=== PATIENT | male | born 1975 | race Caucasian/White ===

== ENCOUNTER 2023-09-03 07:15 | Inpatient (IN) | payer OTHER, SELFPAY ==
[2023-09-03] VITALS (93 sets, daily range): BP systolic 94–194; BP diastolic 56–146; PULSE 46–100; RESP 10–20; TEMP 36.6–37; O2SAT 96–100; BMI 26.6
--- NOTE | ~2023-09-03 | XR_ITS ---
XR chest 1V portable DATE: 09/03/2023 07:47 INDICATION: Chest pain TECHNIQUE: Portable upright AP chest on 09/03/2023 at 0743 hours COMPARISON: 04/21/2016 2 view chest FINDINGS: Normal heart size. Mild aortic tortuosity. No hilar or mediastinal enlargement. No pulmonary infiltrate or consolidation, pleural effusion or pulmonary vascular congestion or pneumo thorax is detected. IMPRESSION: No active cardiopulmonary disease Reviewed, dictated and finalized at location A. [facility]
--- NOTE | 2023-09-03 07:18 | ECG_ITS ---
Measurements Intervals [place] Rate: 81 P: -5 [place]: 151 QRS: 14 QRSD: 98 T: 83 QT: 380 QTc: 443 Interpretive Statements SINUS RHYTHM NONSPECIFIC ST & T-WAVE ABNORMALITY- ANTEROLAT/HIGH LAT LEADS BORDERLINE ECG NO PREVIOUS ECG AVAILABLE FOR COMPARISON Electronically Signed On 09-03-2023 8:48:56 DOUBLE END TRIMMER by Abdoulaye Gutiérrez D.O.
[2023-09-03] MEDS: ASPIRIN 81 MG CHEWABLE TABLET 324 MG PO (07:22)
[2023-09-03 07:33] LABS: Basophils Absolute Auto 0.1 K/mm3 (0.0-0.1); Basophils Percent Auto 0.9 % (0.2-1.2); Eosinophils Absolute Auto 0.2 K/mm3 (0-0.3); Eosinophils Percent Auto 2.7 % (0-4.4); Hematocrit 49.4 % (42.0-52.0); Hemoglobin 17.3 g/dL (14.0-18.0); Immature Granulocyte Absolute 0.03 K/mm3 (0.00-0.031); Immature Granulocyte Percent A 0.4 % (0-0.5); Lymphocytes Absolute Auto 2.22 K/mm3 (0.9-3.2); Mean Corpuscular Hemoglobin 32.2 pg (26-34); Mean Platelet Volume 9.9 fl (7.4-10.4); Monocytes Absolute Auto 0.6 K/mm3 (0.1-0.6); Monocytes Percent Auto 7.4 % (2.6-8.5); Neutrophils Absolute Auto 5.1 K/mm3 (1.3-6.7); Neutrophils Percent Auto 61.6 % (45.5-73.1); Platelet Count Result 239 k/mm3 (150-375); Red Blood Count 5.37 M/mm3 (4.6-6.20); Red Cell Distribution Width 12.7 % (11.5-14.5); White Blood Count 8.2 K/mm3 (4.5-10.0)
[2023-09-03 07:43] LABS: Alanine Aminotransferase 45 U/L (6-50); Albumin Level 4.6 g/dL (3.5-5.1); Alkaline Phosphatase 69 U/L (38-126); Anion Gap 9 mmol/L (8-16); Aspartate Amino Transferase 36 U/L (17-59); Bilirubin,Total 0.6 mg/dL (0.2-1.3); Blood Urea Nitrogen 8 mg/dL (9-20); Calcium 8.9 mg/dL (8.4-10.2); Carbon Dioxide 27 mmol/L (22-30); Chloride 101 mmol/L (98-107); Estimated Glomerular Filt Rate > 60; Glucose 99 mg/dL (65-110); Lipase 161 U/L (23-300); Potassium 3.9 mmol/L (3.4-5.0); Sodium 137 mmol/L (137-145)
[2023-09-03 07:44] LABS: INR 0.9; Prothrombin Time 12.8 Seconds (11.1-14.7)
[2023-09-03 07:45] LABS: Partial Thromboplastin Time 28.9 SECONDS (22.3-36.8)
--- NOTE | 2023-09-03 07:53 | ED.CHESTPAIN ---
HPI - Chest Pain General Chief Complaint: Chest Pain Stated Complaint: chest pain Time Seen by Provider: 09/03/23 07:52 Source: patient and family Mode of arrival: ambulatory Limitations: no limitations History of Present Illness HPI narrative: 48 years old white male came to the emergency room from home with intermittent pain at the left chest, left upper extremity for 1 week, got worse over the last 2 days, has been almost steady since 4:00 a.m... PATIENT IS TELLING ME THAT HE HAD HISTORY OF CORONARY STENT 2015, USED TO BE ON MEDICATION WHICH HE DID NOT LIKE. HE HAS NOT BEEN TAKING MEDICATION FOR THE LAST 6 YEARS. Related Data Home Medications Medication Instructions Recorded Confirmed No Home Medications 09/03/23 09/03/23 Allergies Allergy/AdvReac Type Severity Reaction Status Date / Time No Known Allergies Allergy Verified 09/03/23 07:29 Review of Systems Review of Systems: All systems reviewed & are unremarkable except as noted in HPI and below PMFSH Past Medical History Medical History (Updated 09/04/23 @ 16:54 by Catia Recinos MD) Coronary artery disease Status post stenting in 2015, again in 08/2023 Family History Family History Unknown Family history unknown Social History Social History (Updated 09/03/23 @ 15:49 by Erum Solano APRN) Smoking packs per day: 1 Smoking cigarettes per day: 20.0 Years smoked: 22 Smoking pack-years: 22.00 Smoking status: Former smoker Tobacco type: cigarettes Smoking end date: 08/29/09 Alcohol intake: never Drinks per week: 15 Alcohol use details: 4-5 vodka drinks x3-4 times per week Substance use: never Substance use type: does not use Do You Feel Safe in your Home?: Yes Lack of Transportation: No Lack of Food: Never True Current Housing: I Have Housing Concerned About Future Housing: No Difficulty Paying Gas/Electric Bills: No Difficulty Paying for Meds: No Currently Unemployed: No Education: High School Diploma/GED Difficulty w/ Childcare or Family Care: No Spiritual care concerns: No Exam Narrative: GENERAL APPEARANCE: WELL-DEVELOPED, WELL-NOURISHED, LOOKS UNCOMFORTABLE SKIN: NORMAL COLOR HEAD: NORMOCEPHALIC, NONTRAUMATIC EYES: CLEAR CONJUNCTIVA ENT: OROPHARYNX NORMAL, EARS NORMAL, NOSE NORMAL NECK: SUPPLE, NONTENDER CHEST AND RESPIRATORY: AIRWAY PATENT, NO RESPIRATORY DISTRESS, NO ACCESSORY MUSCLE USE HEART: REGULAR RATE/RHYTHM ABDOMEN: SOFT, NONTENDER, NO ORGANOMEGALY, QUIET BOWEL SOUNDS VASCULAR: NORMAL PERIPHERAL PULSES, NORMAL CAPILLARY REFILL. MUSCULOSKELETAL: NORMAL RANGE OF MOTION, NONTENDER BACK NEUROLOGIC: ALERT AND ORIENTED ?3, AIR CONTROL/ANTI AIR WARFARE OFFICER IS NORMAL TESTED, NO GROSS MOTOR DEFICIT Course Consultations Consultation #1: DR SWANSON Date: 09/03/23 Time: 10:56 Consultation #2: DR STYLES Date: 09/03/23 Time: 12:49 Vital Signs Vital signs: Vital Signs Temperature 36.7 C 09/03/23 07:20 Pulse Rate 86 09/03/23 07:20 Respiratory Rate 20 09/03/23 07:20 Blood Pressure 174/106 H 09/03/23 07:20 Pulse Oximetry 98 09/03/23 07:20 Oxygen Delivery Room Air 09/03/23 07:20 Temperature 36.6 C 09/04/23 16:00 Pulse Rate 86 09/04/23 18:00 Respiratory Rate 14 09/04/23 16:00 Blood Pressure 117/78 09/04/23 16:00 Pulse Oximetry 98 09/04/23 16:00 Oxygen Delivery Room Air 09/04/23 16:00 MDM - Chest Pain MDM Narrative Medical decision making narrative: 48 YEARS OLD WHITE MALE CAME TO THE ED WITH INTERMITTENT LEFT CHEST PAIN RADIATING TO LEFT UPPER EXTREMITY. GOT WORSE OVER THE LAST FEW HOURS. PATIENT IS ADOPTED, DO
[2023-09-03 07:57] LABS: Troponin I 0.284 ng/mL (0.000-0.034)
[2023-09-03 08:16] LABS: NT Pro B Type Natriuretic Pept 544 pg/mL (19.9-100)
[2023-09-03 10:46] LABS: D Dimer < 0.22 ug/mL (<0.48)
--- NOTE | 2023-09-03 10:50 | PC.NURSE ---
pt continues to c/o left sided chest pain with radiation into his left shoulder and elbow. rates 5/10. states pain woke russell from sleep and has been constant today. states has been having this same pain intermittent over the last few days but states it has been relieved with aleve. states pain is similiar to past episode when he had to have a cardiac stent placed.
[2023-09-03] MEDS: ONDANSETRON INJ 4 MG/2 ML VIAL IV PUSH (10:51)
[2023-09-03] MEDS: MORPHINE SULFATE (*CRX) 4 MG/ML INJ IV PUSH ×2 (10:52→11:50)
[2023-09-03 10:54] LABS: Troponin I 0.332 ng/mL (0.000-0.034)
[2023-09-03] MEDS: HEPARIN SODIUM 5,000 UNITS/ML VIAL 4000 UNITS IV PUSH (11:07)
[2023-09-03] MEDS: HEPARIN SOD/D5W 100 UNITS/ML 25,000 UNITS/250 ML BAG 9 UNITS IV CONT (11:08)
[2023-09-03] MEDS: METOPROLOL TARTRATE 50 MG TAB 25 MG PO (11:09)
[2023-09-03] MEDS: NITROGLYCERIN OINTMENT 1 INCH DOSE TRANSDERM (11:10)
--- NOTE | 2023-09-03 11:24 | PC.NURSE ---
chest pain decreased to 3/10. prepped for cath team. waiting their arrival. bp 164/102. hr 81 pulse ox 97% room air.
--- NOTE | 2023-09-03 11:56 | PC.NURSE ---
pt becoming restless. hr 49 bp 104/61. states chest pain is increasing.
[2023-09-03] MEDS: METOPROLOL TARTRATE INJ 5 MG/5 ML VIAL IV PUSH (11:58)
--- NOTE | 2023-09-03 12:00 | PC.NURSE ---
pt diaphoretic. bp 94/56 hr 47. ns bolus iniated 999/hr. nitro paste removed. pts hob declined. states chest pain decreased to 1/10
--- NOTE | 2023-09-03 12:05 | PC.NURSE ---
bp 104/73 p 50. chest and left arm pain 09/07. pt appears more relaxed. skin less clammy
--- NOTE | 2023-09-03 12:05 | ECG_ITS ---
Measurements Intervals [place] Rate: 67 P: 7 [place]: 147 QRS: 22 QRSD: 104 T: 79 QT: 404 QTc: 428 Interpretive Statements SINUS RHYTHM ST & T-WAVE ABNORMALITY IN ANTEROLAT/HIGH LAT LEADS- CONSIDER ISCHEMIA ABNORMAL ECG COMPARED TO ECG 09/03/2023 07:25:43 NO SIGNIFICANT CHANGES Electronically Signed On 09-03-2023 13:52:01 RAILROAD CAR PAINTER by Abdoulaye Gutiérrez D.O.
--- NOTE | 2023-09-03 12:10 | PC.NURSE ---
bp 99/69 p 51. chest pain 09/07. states is feeling better.
--- NOTE | 2023-09-03 12:39 | PC.NURSE ---
pt states chest pain is 2/10. bp 111/83 p 53 98% room air.
--- NOTE | 2023-09-03 13:16 | WPDCNINT ---
Assessment and Plan Assessment and plan (1) Non-STEMI (non-ST elevated myocardial infarction): Code(s): I21.4 - Non-ST elevation (NSTEMI) myocardial infarction Status: Acute Assessment and Plan: Patient has history of coronary disease status post stenting in the past and currently not on any medications. Presents with chest pain and elevated troponin. Diagnosed with non ST segment elevation [facility] is planning for cardiac catheterization today He has been started on heparin drip, has received aspirin and beta-gaston I will start him on nitroglycerin infusion with starting at low rate and weaning up as tolerated by his blood pressure Further medications depending on results of cardiac catheterization ICU telemetry monitoring Will obtain echocardiogram post catheterization (2) Coronary artery disease: Code(s): I25.10 - Atherosclerotic heart disease of [place] coronary artery without angina pectoris Status: Acute Assessment and Plan: See above Plan DVT prophylaxis -heparin infusion Code Status - Full Code Total Critical Care Time - minutes Due to a high probability of clinically significant, life threatening deterioration, the patient required my highest level of preparedness to intervene emergently and I personally spent this critical care time directly and personally managing the patient. This critical care time included obtaining a history; examining the patient; pulse oximetry; ordering and review of studies; arranging urgent treatment with development of a management plan; evaluation of patient's response to treatment; frequent reassessment; and discussions with other providers. It was exclusive of separately billable procedures and treating other patients and teaching time. Please see Assessment and Plan section and the rest of the note for further information on patient assessment and treatment [employer]ane [employer] Consult Note Consult date: 09/03/23 Reason for consult: NSTEMI HPI: Francisco Reno is a 48 year old male presented to ER with chief complaint of chest pain. Patient states the pain started almost a week ago and initially was in his left shoulder and elbow.. Three days ago patient started having chest pain which was intermittent. Pain pressure-like quality 8/10 severe radiates to shoulder and left arm associated with 2 episodes of dizziness. No nausea vomiting palpitation shortness of breath. Patient denies fever, shortness of breath, cough, nausea vomiting, abdominal pain,, diarrhea, headache or constipation. All other systems were reviewed and were negative. Patient in the ER was found to be having abnormal EKG and elevated troponin. Patient states that this time he continues to have pain which is 6/10. He states that morphine and nitroglycerin helped temporally but pain is back. He is sinus Gil[place] in 50s on the monitor with adequate blood pressure at this time. Per nurse patient did had drop blood pressure when he received IV Lopressor and had nitroglycerin paste on. Review of Systems Review of Systems: All systems reviewed & are unremarkable except as noted in HPI and below (HPI) [facility] Past Medical History Medical History (Updated 09/03/23 @ 13:46 by Jayant Plummer MD) Coronary artery disease Status post stenting in 2016 Family History Family History (Updated 09/03/23 @ 13:47 by Jayant Plummer MD) Unknown Family history unknown Social History Social History (Updated 09/03/23 @ 13:47 by Jayant Plummer MD) Social History: Denies any smoking or drug use. Drinks 4-5 vodka drinks 4 times a week Smoking end date: 08/29/09 Alcohol intake: never Meds Home Medications and Allergies Home Medications Medication Instructions Recorded Confirmed Type No Home Medications 09/03/23 09/03/23 History Allergies Allergy/AdvReac Type Severity Reaction Status Date / Time No Known Allergies Allergy Verified 09/03/23 07:29 Vital Signs Vital Signs - 2
[2023-09-03] MEDS: NITROGLYCERIN/D5W 200 MCG/ML 50 MG/250 ML BTL IV CONT ×2 (14:03→19:33)
--- NOTE | 2023-09-03 14:22 | PM.IMHP ---
H&P: HPI History of Present Illness Date/Time: 09/03/23 14:22 Chief Complaint: Chest Pain Narrative: 48 y/o M presents here with CP with PMH of [place] w/stent placement x1 and former smoker (approximately 22 yrs, 1 ppd). Patient reports that he began experiencing an ache in his left elbow a little over 1 week ago. Over the course of the last few days it progressed into his shoulder. Was taking Aleve when it would occur which would resolve pain. Last night around 04:30 patient began experiencing L elbow pain, L shoulder pain, and L sided CP that was more severe than it had been the last few days, was constant, and was not relieved with Aleve. Described pain as a heaviness and 6/10 with mild diaphoresis after arrival to the ED. Has a history of an [place] with stent placement x1 in 2015, done here at [facility]. States his symptoms were similar then, i.e. starting in elbow with progression to shoulder and then effecting chest. Reports pain then was more severe than now. Was placed on medications after cath and was compliant with these for 2 years. Reported no side effects, just had difficulty remembering to take them due to working swing shift and eventually stopped taking them altogether. ED workup showed unremarkable CBC and BMP, elevated BNP at 544, and up trending troponins. Patient continuing to have CP despite nitro, heparin initiation, and morphine. Did report some relief with the morphine but pain returned back to 6/10. No active diaphoresis or nausea. Review of Systems Review of Systems: All systems reviewed & are unremarkable except as noted in HPI and below PMFSH Past Medical History Medical History Coronary artery disease Status post stenting in 2016 Family History Family History Unknown Family history unknown Social History Social History (Updated 09/03/23 @ 15:49 by Erum Solano APRN) Smoking packs per day: 1 Smoking cigarettes per day: 20.0 Years smoked: 22 Smoking pack-years: 22.00 Smoking status: Former smoker Tobacco type: cigarettes Smoking end date: 08/29/09 Alcohol intake: never Drinks per week: 15 Alcohol use details: 4-5 vodka drinks x3-4 times per week Substance use: never Substance use type: does not use Do You Feel Safe in your Home?: Yes Lack of Transportation: No Lack of Food: Never True Current Housing: I Have Housing Concerned About Future Housing: No Difficulty Paying Gas/Electric Bills: No Difficulty Paying for Meds: No Currently Unemployed: No Education: High School Diploma/GED Difficulty w/ Childcare or Family Care: No Spiritual care concerns: No Meds Home Medications and Allergies Home Medications Medication Instructions Recorded Confirmed Type No Home Medications 09/03/23 09/03/23 History Allergies Allergy/AdvReac Type Severity Reaction Status Date / Time No Known Allergies Allergy Verified 09/03/23 07:29 Vital Signs Vital Signs - 24 hr 09/03/23 07:20 09/03/23 11:09 09/03/23 11:17 Temperature 98.1 F Pulse Rate 86 82 82 Respiratory Rate 20 Blood Pressure 174/106 H Pulse Oximetry 98 Oxygen Delivery Room Air 09/03/23 07:30 09/03/23 07:31 09/03/23 07:32 Temperature Pulse Rate 87 100 Respiratory Rate 20 Blood Pressure 174/106 H 194/146 H Pulse Oximetry 100 100 100 Oxygen Delivery 09/03/23 07:45 09/03/23 07:46 09/03/23 08:00 Temperature Pulse Rate 77 76 73 Respiratory Rate 15 15 16 Blood Pressure 161/107 H Pulse Oximetry 100 100 99 Oxygen Delivery 09/03/23 08:01 09/03/23 08:15 09/03/23 08:16 Temperature Pulse Rate 72 71 71 Respiratory Rate 13 10 L 12 Blood Pressure 148/108 H 157/103 H Pulse Oximetry 98 99 98 Oxygen Delivery 09/03/23 08:30 09/03/23 08:31 09/03/23 08:45 Temperature Pulse Rate Respiratory Rate Blood Pressure 161
--- NOTE | 2023-09-03 14:50 | PC.NURSE ---
bp 128/87 p 58 pt states pain is worsening. now rating 6-7/10. pt again becoming restless.
--- NOTE | 2023-09-03 15:15 | ECG_ITS ---
Measurements Intervals [place] Rate: 51 P: 17 [place]: 148 QRS: 23 QRSD: 103 T: 65 QT: 471 QTc: 438 Interpretive Statements SINUS BRADYCARDIA ATRIAL PREMATURE COMPLEX ST-T WAVE ABNORMALITY IN HIGH LATERAL LEADS- CONSIDER ISCHEMIA BASELINE WANDER- V1-V2 ABNORMAL ECG COMPARED TO ECG 09/03/2023 10:30:10 SINUS BRADYCARDIA NOW PRESENT Electronically Signed On 09-03-2023 16:54:29 DAMPPROOFER by Abdoulaye Gutiérrez D.O.
--- NOTE | 2023-09-03 15:15 | WPDMODSED ---
Moderate Sedation Note-Pt Data Patient Data Allergies Allergy/AdvReac Type Severity Reaction Status Date / Time No Known Allergies Allergy Verified 09/03/23 07:29 Home Medications Medication Instructions Recorded Confirmed Type No Home Medications 09/03/23 09/03/23 History Current Medications: Active Medications Acetaminophen (Acetaminophen 325 Mg Tablet) 650 mg PO Q4H PRN PRN Reason: Mild Pain (1-3) or Fever Aspirin (Aspirin 81 Mg Chewable Tablet) 81 mg PO DAILY@0800 [facility] Heparin Sodium (Porcine) (Heparin Sodium 5,000 Units/Ml Vial) 4,000 units IV PUSH PRN PRN PRN Reason: aPTT less than 55 seconds Last Admin: 09/03/23 11:07 Dose: 4,000 units Heparin Sodium (Porcine) (Heparin Sodium 5,000 Units/Ml Vial) 3,000 units IV PUSH PRN PRN PRN Reason: aPTT 55 - 70 seconds Heparin Sodium/Dextrose (Heparin Sodium/D5w 100 Units/Ml) 25,000 units in 250 mls @ 9 mls/hr IV CONT .Q24H [facility]; Protocol Last Admin: 09/03/23 11:08 Dose: 900 units/hr, 9 mls/hr Nitroglycerin/Dextrose (Nitroglycerin In 5% Dextrose 50 Mg) 50 mg in 250 mls @ 1.5 mls/hr IV CONT .Q24H [facility] Last Admin: 09/03/23 14:03 Dose: 5 mcg/min, 1.5 mls/hr Nitroglycerin (Nitroglycerin Sl 0.4 Mg Tablet) 0.4 mg SUBLINGUAL Q5MIN PRN PRN Reason: Chest Pain Sedation/Anesthesia: No previous sedation/anesthesia problems (including family history). [facility] Past Medical History Medical History (Updated 09/03/23 @ 13:46 by Jayant Plummer MD) Coronary artery disease Status post stenting in 2016 Family History Family History (Updated 09/03/23 @ 13:47 by Jayant Plummer MD) Unknown Family history unknown Social History Social History (Updated 09/03/23 @ 13:47 by Jayant Plummer MD) Social History: Denies any smoking or drug use. Drinks 4-5 vodka drinks 4 times a week Smoking end date: 08/29/09 Alcohol intake: never Mod Sed Physical Exam Physical Exam Pre Procedural Exam: Normal: Airway Hours since solid foods: 18 Hours since liquid intake: 18 Mallampati Classification: class II Internal Medicine - PN: Obj Da Vital Signs Vital Signs: Vital Signs - 24 hr 09/03/23 07:20 09/03/23 11:09 09/03/23 11:17 Temperature 36.7 C Pulse Rate 86 82 82 Respiratory Rate 20 Blood Pressure 174/106 H Pulse Oximetry 98 Oxygen Delivery Room Air 09/03/23 07:30 09/03/23 07:31 09/03/23 07:32 Temperature Pulse Rate 87 100 Respiratory Rate 20 Blood Pressure 174/106 H 194/146 H Pulse Oximetry 100 100 100 Oxygen Delivery 09/03/23 07:45 09/03/23 07:46 09/03/23 08:00 Temperature Pulse Rate 77 76 73 Respiratory Rate 15 15 16 Blood Pressure 161/107 H Pulse Oximetry 100 100 99 Oxygen Delivery 09/03/23 08:01 09/03/23 08:15 09/03/23 08:16 Temperature Pulse Rate 72 71 71 Respiratory Rate 13 10 L 12 Blood Pressure 148/108 H 157/103 H Pulse Oximetry 98 99 98 Oxygen Delivery 09/03/23 08:30 09/03/23 08:31 09/03/23 08:45 Temperature Pulse Rate Respiratory Rate Blood Pressure 161/115 H Pulse Oximetry 99 100 98 Oxygen Delivery 09/03/23 08:46 09/03/23 09:00 09/03/23 09:01 Temperature Pulse Rate Respiratory Rate Blood Pressure 161/108 H 160/103 H Pulse Oximetry 98 97 97 Oxygen Delivery 09/03/23 09:15 09/03/23 09:16 09/03/23 09:30 Temperature Pulse Rate Respiratory Rate Blood Pressure 149/93 H Pulse Oximetry 98 98 96 Oxygen Delivery 09/03/23 09:31 09/03/23 09:45 09/03/23 09:46 Temperature Pulse Rate Respiratory Rate Blood Pressure 156/111 H 166/106 H Pulse Oximetry 99 98 98 Oxygen Delivery 09/03/23 10:00 09/03/23 10:01 09/03/23 10:15 Temperature Pulse Rate Respiratory Rate Blood Pressure 154/122 H Pulse Oximetry 98 99 97 Oxygen Delivery 09/03/23 10:16 09/03/23 10:30 09/03/23 10:45 Temperature Pulse Rate Respiratory Rate Blood Pressure 160/113 H Pulse Oximetry 98 100 100 Oxygen Del
--- NOTE | 2023-09-03 15:18 | PM.CNCAR ---
Assessment and Plan Assessment and plan (1) Non-STEMI (non-ST elevated myocardial infarction): Code(s): I21.4 - Non-ST elevation (NSTEMI) myocardial infarction Status: Acute Plan 48-year-old male with known CAD, history of non ST elevation ME, status post PCI/ 2.75x 23 mm Xience everolimus eluting stent placement in the distal RCA on 04/22/2016; noncompliance. Patient presented with 3 day history of worsening chest pain. EKG showed ST-T abnormality in the anterolateral leads consistent with ischemia. Troponins were elevated with current peak troponin level of 1.1. Coronary angiogram showed multivessel CAD- 100% thrombotic occlusion of mid LCX -infarct related vessel; and high-grade stenosis in the mid LAD, diagonal branch; diffuse disease in the RCA with severe ISR distal segment; LVEF 45-50%. Patient underwent PCI/AMMON x1 mid LCX with baptism of flow in the OM branch. - dual antiplatelet therapy with aspirin ticagrelor; beta-gaston, high-dose statin. - patient has multivessel CAD involving LAD, diagonal branch and proximal- distal RCA. He will undergo staged multivessel PCI. Option of surgical revascularization with CABG was also discussed with the patient , which may be reasonable in this patient who has been noncompliant with medical treatment and outpatient follow-up. Further recommendations will follow based on clinical course. History of Present Illness History of Present Illness Consult date/time: 09/03/23 15:18 Requesting physician: Lo Sosa MD Reason For Visit: N STEMI Narrative: chief complaint: Chest pain x3 days HPI: 48-year-old male with known CAD, history of non ST elevation ME, status post PCI/ 2.75x 23 mm Xience everolimus eluting stent placement in the distal RCA on 04/22/2016; noncompliance. Patient presented to [facility] Emergency Room on 09/03/2023 with 3 day history of worsening chest discomfort. He denied any associated symptoms of shortness of breath, palpitation, dizziness or syncope. He had non ST elevation ME previously and had PCI/ stenting. However, he did not follow-up after his last coronary event. He has not been compliant with any of his medications at home. Review of Systems Review of Systems: General: Negative for fever, chills, fatigue Psychological: Negative for anxiety, depression Ophthalmic: negative for loss of vision ENT: Negative for epistaxis, headaches Allergy and immunology: Negative for hives, nasal congestion Hematologic and lymphatic: Negative for overt bleeding problems Endocrine: Negative for hot flashes, palpitations Respiratory: Negative for cough, hemoptysis Cardiovascular: Positive for chest pain Gastrointestinal: Negative for abdominal pain, nausea, vomiting, hematochezia Musculoskeletal: Negative for myalgia, joint pains Neurological: Negative for weakness Dermatological: Negative for rash, skin discoloration PMFSH Past Medical History Medical History Coronary artery disease Status post stenting in 2016 Family History Family History (Updated 09/03/23 @ 15:20 by Nadir Burch MD) Unknown Family history unknown Social History Social History (Updated 09/03/23 @ 15:49 by Erum Solano APRN) Smoking packs per day: 1 Smoking cigarettes per day: 20.0 Years smoked: 22 Smoking pack-years: 22.00 Smoking status: Former smoker Smoking end date: 08/29/09 Alcohol intake: current Drinks per week: 15 Alcohol use details: 4-5 vodka drinks x3-4 times per week Substance use: former Substance use type: marijuana Meds Home Medications and Allergies Home Medications Medication Instructions Recorded Confirmed Type No Home Medications 09/03/23 09/03/23 History Allergies Allergy/AdvReac Type Severity Reaction Status Date / Time No Known Allergies Allergy Verified 09/03/23 07:29 Vital Signs Vital Signs - 24 hr 09/03/23
--- NOTE | 2023-09-03 16:29 | WPDCARDPROC ---
Cardiac Cath Procedure Note Date of procedure:: 09/03/23 Performing physician:: Nadir Burch MD Procedure Procedure note:: CARDIAC CATHETERIZATION AND PERCUTANEOUS CORONARY INTERVENTION REPORT DATE OF PROCEDURE: 09/03/2023 INDICATION FOR PROCEDURE: ACS-non ST elevation NJ BRIEF CLINICAL HISTORY: 48-year-old male with known CAD, history of non ST elevation [place], status post PCI/ 2.75x 23 mm Xience everolimus eluting stent placement in the distal RCA on 04/22/2016; noncompliance.? Patient presented to [facility] Emergency Room on 09/03/2023 with 3 day history of worsening chest discomfort.? He denied any associated symptoms of shortness of breath, palpitation, dizziness or syncope.? He had non ST elevation NJ? previously and had PCI/ stenting.? However, he did not follow-up after his last coronary event.? He has not been compliant with any of his medications at home. Patient had ongoing chest discomfort in the emergency room despite being on antianginal medication including IV nitroglycerin. Therefore, patient was brought to the [facility] urgently for cardiac catheterization. Benefits and risks of the procedure were discussed with the patient in depth, and informed consent was obtained prior to the procedure. Risks of the procedure include but are not limited to vascular complications including groin hematoma, retroperitoneal bleed, vessel perforation; periprocedural NJ, cardiac arrhythmias, stroke, contrast induced nephropathy, and . After discussing all the benefits, risks and alternatives, patient was willing to proceed with the procedure. PROCEDURES PERFORMED: 1. Left heart catheterization- Selective left and right coronary angiogram; left ventriculogram and hemodynamic assessment 2. Percutaneous coronary intervention- balloon angioplasty and stenting of totally occluded mid left circumflex artery using a 3.25 x 12 mm Fowler Xience everolimus eluting stent with mandaeism of flow in the OM branch 3. Deployment of Mynx hemostatic device 4. Moderate sedation-CPT code 81331 and beyond MODERATE SEDATION: Midazolam 1 mg; fentanyl 25 mcg. Start time 1519 , Stop time 1614 ; Total [id number] time 55 minutes; Annabelle Hernandez RN was trained observer for moderate sedation. ACCESS SITE: Right common femoral artery PROCEDURE NOTE: After obtaining informed consent, patient was brought to catheterization lab and prepped and draped in a usual sterile manner. After local anesthesia with lidocaine, right common femoral artery access was taken with micropuncture needle followed by insertion of a 6 Lithuanian sheath. Selective left and right coronary angiogram was performed using 5 Lithuanian JL4 and JR4 catheters respectively. Orthogonal views were taken. . After completion of PCI, 5 Lithuanian pigtail catheter was advanced in the LV cavity and was flushed with normal saline. LV pressure measurement was performed. After this, left ventriculogram was performed. The catheter was flushed again, and gradient across the aortic valve was measured on the pullback of the catheter. After completion of procedure, Mynx vascular closure device was deployed with good hemostasis. Patient tolerated procedure well without any immediate procedure related complications. FINDINGS: LEFT MAIN CORONARY: medium caliber vessel with minimal narrowing in the proximal segment. Vessel bifurcates in LAD and left circumflex branches. LEFT ANTERIOR DESCENDING ARTERY: Lad is a medium caliber vessel, tapers distally and reaches LV apex. There is about 40-50% stenosis in the proximal segment; about 70% stenosis in the mid segment between 2 small caliber diagonal branches. Minor plaque is seen in the upper part of the distal segment. Diagonal 1 branch is a medium caliber vessel with high-grade about 90% diffuse stenosis in the proximal segment. Second diagonal branch has mild narrowing at the ostium. Third diagonal branch is a small to medium caliber vessel. LEFT CIR
--- NOTE | 2023-09-03 17:08 | ADMGEN ---
This patient, Francisco Reno, was admitted to Intensive Care Unit-11. Patient/family oriented to hospital policies and general routines including ID bracelet, bed and alarms, visiting hours, pain management, procedures, bathroom and other care routines, personal items, smoking policy, room service/diet, and visiting hours. Information on how to activate the Rapid Response Team has been discussed. Patient/Family are encouraged to report perceived risks to care and to ask questions if they do not understand what they are told or what they should do.
[2023-09-03] MEDS: SODIUM CHLORIDE 0.9% IV 1,000 ML 125 ML IV CONT (17:28)
[2023-09-03] MEDS: METOPROLOL TARTRATE 12.5 MG TABLET PO ×2 (17:28→20:22)
[2023-09-03] MEDS: TICAGRELOR 90 MG TABLET PO (22:57)
[2023-09-04] VITALS (17 sets, daily range): BP systolic 112–166; BP diastolic 77–110; PULSE 74–99; RESP 12–22; TEMP 36.5–36.8; O2SAT 96–99
[2023-09-04 04:36] LABS: Basophils Percent Auto 0.5 % (0.2-1.2); Eosinophils Absolute Auto 0.1 K/mm3 (0-0.3); Eosinophils Percent Auto 1.3 % (0-4.4); Hematocrit 41.7 % (42.0-52.0); Hemoglobin 14.3 g/dL (14.0-18.0); Immature Granulocyte Absolute 0.02 K/mm3 (0.00-0.031); Immature Granulocyte Percent A 0.3 % (0-0.5); Lymphocytes Absolute Auto 1.35 K/mm3 (0.9-3.2); Lymphocytes Percent Auto 17.2 % (18.3-44.2); Mean Corpuscular HGB Conc 34.3 g/dl (32-36); Mean Corpuscular Hemoglobin 31.6 pg (26-34); Mean Corpuscular Volume 92.3 fl (80-100); Mean Platelet Volume 10.3 fl (7.4-10.4); Monocytes Absolute Auto 0.6 K/mm3 (0.1-0.6); Monocytes Percent Auto 7.9 % (2.6-8.5); Neutrophils Absolute Auto 5.7 K/mm3 (1.3-6.7); Neutrophils Percent Auto 72.8 % (45.5-73.1); Platelet Count Result 153 k/mm3 (150-375); Red Blood Count 4.52 M/mm3 (4.6-6.20); Red Cell Distribution Width 12.7 % (11.5-14.5); White Blood Count 7.8 K/mm3 (4.5-10.0)
[2023-09-04 04:43] LABS: Alanine Aminotransferase 42 U/L (6-50); Albumin Level 3.5 g/dL (3.5-5.1); Alkaline Phosphatase 60 U/L (38-126); Anion Gap 6 mmol/L (8-16); Aspartate Amino Transferase 132 U/L (17-59); Bilirubin,Total 0.9 mg/dL (0.2-1.3); Blood Urea Nitrogen 11 mg/dL (9-20); Calcium 8.5 mg/dL (8.4-10.2); Carbon Dioxide 22 mmol/L (22-30); Chloride 106 mmol/L (98-107); Cholesterol 219 mg/dL (0-200); Estimated CRCL calculation 100 ml/min; Estimated Glomerular Filt Rate > 60; Glucose 104 mg/dL (65-110); HDL Direct 48 mg/dL; Sodium 134 mmol/L (137-145); Triglycerides 126 mg/dL (<150)
[2023-09-04 04:53] LABS: LDL Cholesterol Direct 124 mg/dL
[2023-09-04] MEDS: hydrALAZINE HCL 20 MG/ML VIAL 10 MG IV PUSH ×2 (04:53→11:20)
--- NOTE | 2023-09-04 08:13 | WPDINTPN ---
Progress Note: A&P Assessment and Plan (1) Non-STEMI (non-ST elevated myocardial infarction): Code(s): I21.4 - Non-ST elevation (NSTEMI) myocardial infarction Status: Acute Assessment and Plan: Patient has history of coronary disease status post stenting in the past and currently not on any medications. Presents with chest pain and elevated troponin. Diagnosed with non ST segment elevation CA 09/03 cardiac catheterization 1. Multivessel CAD- a)? 100% thrombotic occlusion mid LCX-infarct related vessel b)? about 70% stenosis mid LAD between two diagonal branches; high-grade about 90% stenosis proximal diagonal branch 1 c)? about 60% stenosis ostial RCA with poststenotic dilatation;? about 80% InStent restenosis distal RCA 2.? Borderline LV systolic function, LV EF 45-50%; LVEDP elevated at 21 mmHg. 3.? PCI-PTCA/stenting of totally occluded mid LCX using a 3.25 x 12 mm Xience everolimus eluting stent with uatsdin of flow in the OM branch. Will wean off nitroglycerin infusion Continue aspirin, Lipitor, Brilinta and beta-gaston Check echocardiogram Patient will need CABG and he is open to it and will discuss further with Cardiology (2) Coronary artery disease: Code(s): I25.10 - Atherosclerotic heart disease of [place] coronary artery without angina pectoris Status: Acute Assessment and Plan: See above Plan DVT prophylaxis -I anticipate that patient will ambulate today Code Status - Full Code Transfer out of ICU today Incentive spirometry, up in chair Subjective Date/time seen: 09/04/23 Overnight events reviewed. Afebrile Continues to be low-dose nitroglycerin infusion This morning he states he is feeling better and denies any chest pain. Patient denies fever, chest pain, shortness of breath, cough, nausea vomiting, abdominal pain,, diarrhea, headache or constipation. Review of system is positive for headache. Other systems were reviewed and were negative Sinus rhythm on the monitor Other vitals acceptable Review of Systems Review of Systems: All systems reviewed & are unremarkable except as noted in HPI and below (HPI) Exam Narrative: General: Pt is alert awake and in NAD Lungs/Chest: Trachea central Clear BS B/L, No crackles or wheezing. Cardiac: RRR. Normal S1 S2. No murmurs Circulation: Pedal pulses are intact and symmetrical. Abdomen: Normal bowel sounds.. Soft. NT. ND. Extremities: No clubbing, cyanosis or edema. Warm right groin cath site shows no hematoma swelling or tenderness : Marino in place Neurologic: Follows commands. Moves all 4 extremities PERRL Skin: No Rash Objective Data Vital Signs Vital Signs: Vital Signs - 24 hr 09/03/23 11:09 09/03/23 11:17 09/03/23 08:15 Temperature Pulse Rate 82 82 71 Respiratory Rate 10 L Blood Pressure Pulse Oximetry 99 Oxygen Delivery 09/03/23 08:16 09/03/23 08:30 09/03/23 08:31 Temperature Pulse Rate 71 Respiratory Rate 12 Blood Pressure 157/103 H 161/115 H Pulse Oximetry 98 99 100 Oxygen Delivery 09/03/23 08:45 09/03/23 08:46 09/03/23 09:00 Temperature Pulse Rate Respiratory Rate Blood Pressure 161/108 H Pulse Oximetry 98 98 97 Oxygen Delivery 09/03/23 09:01 09/03/23 09:15 09/03/23 09:16 Temperature Pulse Rate Respiratory Rate Blood Pressure 160/103 H 149/93 H Pulse Oximetry 97 98 98 Oxygen Delivery 09/03/23 09:30 09/03/23 09:31 09/03/23 09:45 Temperature Pulse Rate Respiratory Rate Blood Pressure 156/111 H Pulse Oximetry 96 99 98 Oxygen Delivery 09/03/23 09:46 09/03/23 10:00 09/03/23 10:01 Temperature Pulse Rate Respiratory Rate Blood Pressure 166/106 H 154/122 H Pulse Oximetry 98 98 99 Oxygen Delivery 09/03/23 10:15 09/03/23 10:16 09/03/23 10:30 Temperature Pulse Rate Respiratory Rate Blood Pressure 160/113 H Pulse Oximetry 97 98 100 Oxygen Delivery 09/03/23 10:
[2023-09-04] MEDS: carvediloL 6.25 MG TABLET PO ×2 (08:21→20:07)
[2023-09-04] MEDS: PANTOPRAZOLE SODIUM IV 40 MG VIAL IV PUSH (08:21)
[2023-09-04] MEDS: TICAGRELOR 90 MG TABLET PO ×2 (08:21→20:07)
[2023-09-04] MEDS: ATORVASTATIN 40 MG TABLET 80 MG PO (08:21)
[2023-09-04] MEDS: ASPIRIN 81 MG ENTERIC TABLET PO (08:22)
--- NOTE | 2023-09-04 09:41 | PM.PNCARD ---
Progress Note: A&P Assessment and Plan (1) Non-STEMI (non-ST elevated myocardial infarction): Code(s): I21.4 - Non-ST elevation (NSTEMI) myocardial infarction Status: Acute Assessment and Plan: 48-year-old male with known CAD, history of non ST elevation [place], status post PCI/ 2.75x 23 mm Xience everolimus eluting stent placement in the distal RCA on 04/22/2016; noncompliance. Patient presented with 3 day history of worsening chest pain. EKG showed ST-T abnormality in the anterolateral leads consistent with ischemia. Troponins has reached up to 27.4. Coronary angiogram showed multivessel CAD- 100% thrombotic occlusion of mid LCX -infarct related vessel; and high-grade stenosis in the mid LAD, diagonal branch; diffuse disease in the RCA with severe ISR distal segment; LVEF 45-50%. Patient underwent PCI/AMMON x1 mid LCX with rastafari of flow in the OM branch. -chest pain has resolved. Currently clinically stable. Continue dual antiplatelet therapy with aspirin ticagrelor; beta-gaston, high-dose statin. -check echo with Doppler -transferred to IMU - patient has multivessel CAD involving LAD, diagonal branch and proximal- distal RCA. Revascularization options were discussed with the patient which include multivessel PCI versus CABG. Patient will be seen in the outpatient cardiology clinic in next couple weeks and will determine further revascularization strategy. He was advised to seek immediate medical attention after hospital discharge if recurrent chest discomfort. (2) History of noncompliance with medical treatment, presenting hazards to health: Code(s): Z91.199 - Patient's noncompliance with other medical treatment and regimen due to unspecified reason Status: Acute Assessment and Plan: Patient has history of noncompliance with medical treatment and outpatient follow-up. Spoke at length with the patient and his about importance of medication compliance and outpatient follow-up. He verbalized understanding. Subjective Date/time seen: 09/04/23 09:41 Interval history: Date of service: 09/04/2023 Interval history: Chest pain has resolved. No shortness of breath. No palpitation, dizziness or syncope. No significant arrhythmias on telemetry. Review of Systems Review of Systems: General: Negative for fever, chills, fatigue Psychological: Negative for anxiety, depression Ophthalmic: negative for loss of vision ENT: Negative for epistaxis, headaches Allergy and immunology: Negative for hives, nasal congestion Hematologic and lymphatic: Negative for overt bleeding problems Endocrine: Negative for hot flashes, palpitations Respiratory: Negative for cough, hemoptysis Cardiovascular: Chest pain resolved Gastrointestinal: Negative for abdominal pain, nausea, vomiting, hematochezia Musculoskeletal: Negative for myalgia, joint pains Neurological: Negative for weakness Dermatological: Negative for rash, skin discoloration Exam Narrative: PHYSICAL EXAMINATION: GENERAL: Alert, oriented, no acute distress MENTAL STATUS: affect appropriate to mood EYES: Extraocular movements intact, no pallor EARS: External ears appear normal, hearing grossly normal NOSE: Normal and patent, no discharge MOUTH: Mucous membranes moist, tongue normal NECK: Supple, no JVD CHEST: Good respiratory effort, clear to auscultation HEART: Normal rate, regular rhythm, normal S1 and S2, no audible murmurs ABDOMEN: Soft, nontender NEUROLOGICAL: Alert, oriented, normal speech, no gross motor deficits MUSCULOSKELETAL: No major deformity, no amputation EXTREMITIES: No pedal edema, right groin access site unremarkable SKIN: no rash on the exposed area, no cyanosis PSYCHIATRIC: Normal mood, appropriate affect Objective Data Vital Signs Vital Signs: Vital Signs - 24 hr 09/03/23 11:09 09/03/23 11:17 09/03/23 09:45 Temperature Pulse Rate 82 82 Respiratory Rate Blood P
--- NOTE | 2023-09-04 16:52 | PM.IMPN ---
Progress Note: A&P Assessment and Plan (1) History of noncompliance with medical treatment, presenting hazards to health: Code(s): Z91.199 - Patient's noncompliance with other medical treatment and regimen due to unspecified reason Status: Acute (2) Coronary artery disease: Code(s): I25.10 - Atherosclerotic heart disease of [place] coronary artery without angina pectoris Status: Acute (3) Non-STEMI (non-ST elevated myocardial infarction): Code(s): I21.4 - Non-ST elevation (NSTEMI) myocardial infarction Status: Acute Plan The patient is asymptomatic. He confirms to me he will take his medications and follow-up with Cardiology. He will follow-up with Dr. Burch on further management for multivessel coronary artery disease. Continue DAPT and beta-gaston and atorvastatin 80 mg q.h.s.. Pending echo with Doppler. Pending HbA1c. SCDs. Full code. Suspect he should be able to return home in the morning if all is stable and Cardiology clears. Subjective Date/time seen: 09/04/23 16:52 Interval history: No acute overnight events. The , Xiomara, is present in the room. Patient denies any chest pain. He is willing to be adherent to medications and following up with Cardiology. Denies smoking any more. Review of Systems Review of Systems: All systems reviewed & are unremarkable except as noted in HPI and below (Subjective) Exam Const: General: comfortable and no acute distress Eyes: Pupils: Equal, round and reactive pupils present Neck: Neck: supple Resp: Effort & Inspection: normal respiratory effort Auscultation: clear to auscultation bilaterally, no crackles, no rales and no rhonchi Cardio: Rate: regular rate Rhythm: regular rhythm Heart sounds: no gallops, no murmurs and no rubs GI: GI Palp: Yes Soft to palpation Extrem: General: no edema Objective Data Vital Signs Vital Signs: Vital Signs - 24 hr 09/03/23 17:28 09/03/23 17:06 09/03/23 17:21 Temperature Pulse Rate 61 60 63 Respiratory Rate 12 16 Blood Pressure 149/96 H 137/90 Pulse Oximetry 98 97 Oxygen Delivery 09/03/23 17:51 09/03/23 18:21 09/03/23 18:00 Temperature Pulse Rate 62 62 62 Respiratory Rate 19 13 13 Blood Pressure 144/105 H 148/98 H 148/98 H Pulse Oximetry 97 98 98 Oxygen Delivery 09/03/23 18:00 09/03/23 19:33 09/03/23 19:21 Temperature Pulse Rate 61 78 72 Respiratory Rate 15 Blood Pressure 146/93 H 141/82 H Pulse Oximetry 98 Oxygen Delivery 09/03/23 20:00 09/03/23 20:22 09/03/23 20:00 Temperature 97.9 F Pulse Rate 67 85 74 Respiratory Rate 18 Blood Pressure 138/95 H Pulse Oximetry 97 Oxygen Delivery 09/03/23 20:00 09/03/23 21:00 09/03/23 22:00 Temperature Pulse Rate 69 78 Respiratory Rate 16 17 Blood Pressure 116/86 124/86 Pulse Oximetry 97 96 Oxygen Delivery Room Air 09/03/23 23:00 09/03/23 22:00 09/03/23 23:03 Temperature 98.4 F Pulse Rate 81 78 70 Respiratory Rate 15 Blood Pressure 133/99 H 133/99 H Pulse Oximetry 96 Oxygen Delivery 09/03/23 22:00 09/04/23 00:00 09/04/23 00:00 Temperature Pulse Rate 78 74 Respiratory Rate 17 Blood Pressure 124/86 Pulse Oximetry 96 Oxygen Delivery Room Air 09/04/23 00:00 09/04/23 02:00 09/04/23 02:00 Temperature Pulse Rate 74 80 80 Respiratory Rate 12 16 Blood Pressure 166/101 H 157/110 H Pulse Oximetry 99 97 Oxygen Delivery 09/04/23 02:48 09/04/23 02:49 09/04/23 04:00 Temperature Pulse Rate 77 Respiratory Rate Blood Pressure 143/103 H 143/103 H Pulse Oximetry Oxygen Delivery 09/04/23 04:00 09/04/23 04:00 09/04/23 06:00 Temperature 97.7 F Pulse Rate 78 83 Respiratory Rate 18 Blood Pressure 160/108 H Pulse Oximetry 96 Oxygen Delivery Room Air 09/04/23 06:00 09/04/23 06:32 09/04/23 08:21 Temperature Pulse Rate 84 83 95 Respiratory Rate 18 Blood Pressure 141/104 H 141/104 H
[2023-09-05] VITALS (8 sets, daily range): BP systolic 108–136; BP diastolic 73–108; PULSE 72–82; RESP 16–19; TEMP 36.3–36.8; O2SAT 96–99
[2023-09-05 04:16] LABS: Basophils Percent Auto 0.6 % (0.2-1.2); Eosinophils Absolute Auto 0.1 K/mm3 (0-0.3); Eosinophils Percent Auto 2.1 % (0-4.4); Hematocrit 43.7 % (42.0-52.0); Hemoglobin 15.1 g/dL (14.0-18.0); Immature Granulocyte Absolute 0.01 K/mm3 (0.00-0.031); Immature Granulocyte Percent A 0.2 % (0-0.5); Lymphocytes Absolute Auto 1.21 K/mm3 (0.9-3.2); Lymphocytes Percent Auto 22.6 % (18.3-44.2); Mean Corpuscular HGB Conc 34.6 g/dl (32-36); Mean Corpuscular Hemoglobin 31.9 pg (26-34); Mean Corpuscular Volume 92.4 fl (80-100); Mean Platelet Volume 10.2 fl (7.4-10.4); Monocytes Absolute Auto 0.5 K/mm3 (0.1-0.6); Monocytes Percent Auto 9.1 % (2.6-8.5); Neutrophils Absolute Auto 3.5 K/mm3 (1.3-6.7); Neutrophils Percent Auto 65.4 % (45.5-73.1); Platelet Count Result 150 k/mm3 (150-375); Red Blood Count 4.73 M/mm3 (4.6-6.20); Red Cell Distribution Width 12.5 % (11.5-14.5); White Blood Count 5.4 K/mm3 (4.5-10.0)
[2023-09-05 04:22] LABS: Hemoglobin A1C 5.1 % (<5.7)
[2023-09-05 04:31] LABS: Alanine Aminotransferase 33 U/L (6-50); Albumin Level 3.6 g/dL (3.5-5.1); Alkaline Phosphatase 56 U/L (38-126); Anion Gap 7 mmol/L (8-16); Aspartate Amino Transferase 58 U/L (17-59); Bilirubin,Total 0.8 mg/dL (0.2-1.3); Blood Urea Nitrogen 11 mg/dL (9-20); Calcium 8.5 mg/dL (8.4-10.2); Carbon Dioxide 23 mmol/L (22-30); Chloride 106 mmol/L (98-107); Estimated CRCL calculation 90 ml/min; Estimated Glomerular Filt Rate > 60; Glucose 101 mg/dL (65-110); Magnesium 2.2 mg/dL (1.6-2.3); Potassium 3.5 mmol/L (3.4-5.0); Sodium 136 mmol/L (137-145)
--- NOTE | 2023-09-05 06:00 | ECHO_ITS ---
Patient Info Name: Francisco Reno Age: 48 years : 1975 Gender: Male Ht: 70 in Wt: 187 lbs BSA: 2.06 m2 HR: 73 bpm BP: 136 / 108 mmHg Heart Rhythm: Sinus Rhythm Technical Quality: Fair Exam Date: 09/05/2023 8:08 AM Exam Location: Echo Lab Patient Status: Inpatient Admit Date: 09/03/2023 Staff Ordering Physician: Catia Recinos MD Attending Provider: Catia Recinos MD Exam Type: CA echo dop color flow w con Study Info Indications I21.3 - ST elevation (STEMI) myocardial infarction of unspecified site Complete two-dimensional, color flow and Doppler transthoracic echocardiogram is performed with contrast to opacify the left ventricle and to improve the deliniation of the left ventricle endocardial borders. Contrast/Agitated Saline Contrast/Ag. Saline: Definity Amount: 1.00 ml Existing IV Access: Yes IV Access Condition: patent with no signs of infiltration Summary 1. Technically difficult study with limited views. Definity contrast administered. 2. Left ventricular chamber dimension is normal. 3. Left ventricular systolic function is lower limits of normal, estimated at 50-55%. Mid inferolateral hypokinesis noted. 4. There is moderately increased left ventricular wall thickness. 5. The left ventricular diastolic function is normal. 6. There is no aortic valve stenosis. 7. There is no mitral valve regurgitation. Left Ventricle Left ventricular chamber dimension is normal. Left ventricular systolic function is lower limits of normal, estimated at 50-55%. Mid inferolateral hypokinesis noted. There is moderately increased left ventricular wall thickness. The left ventricular diastolic function is normal. Technically difficult study with limited views. Definity contrast administered. Right Ventricle Right ventricular chamber dimension is normal. Right ventricular systolic function is normal. Left Atria Left atrial chamber dimension is normal. Right Atria Right atrial chamber dimension is normal. Thin mobile echodensity noted within the right atrium most likely consistent Chiari network. Aortic Valve The aortic valve is not well visualized. There is no aortic valve stenosis. There is no aortic valve regurgitation. Pulmonic Valve The pulmonic valve is not well visualized. Mitral Valve The mitral valve has normal leaflets. There is no mitral valve regurgitation. Tricuspid Valve The tricuspid valve leaflets are normal. There is trace tricuspid valve regurgitation. Unable to estimate PA systolic pressure due to poor spectral resolution of tricuspid regurgitant jet velocity. Pericardium/Pleural The pericardium appears normal. Inferior Vena Cava Normal inferior vena cava with >50% collapse upon inspiration consistent with normal right atrial pressure, 5 mmHg. Aorta The aortic root size at the sinus of Valsalva is normal. There is mild aortic atherosclerosis. Left Ventricular Outflow Tract Name Value Normal LVOT 2D LVOT Diameter 1.98 cm LVOT Doppler LVOT Peak Gradient 2 mmHg LVOT Mean Gradient 1 mmHg LVOT VTI 13.85 cm LVOT VTI/AV VTI Ratio
[2023-09-05] MEDS: TICAGRELOR 90 MG TABLET PO (08:05)
[2023-09-05] MEDS: ASPIRIN 81 MG ENTERIC TABLET PO (08:05)
[2023-09-05] MEDS: carvediloL 6.25 MG TABLET PO (08:05)
[2023-09-05] MEDS: ATORVASTATIN 40 MG TABLET 80 MG PO (08:05)
[2023-09-05] MEDS: PANTOPRAZOLE SODIUM IV 40 MG VIAL IV PUSH (08:05)
[2023-09-05] MEDS: PERFLUTREN LIPID MICROSPHERES 1.5 ML VIAL DILUTED TO 10 ML TOTAL VOLUME IV PUSH (10:12)
--- NOTE | 2023-09-05 12:43 | PM.PNCARD ---
Progress Note: A&P Assessment and Plan (1) Non-STEMI (non-ST elevated myocardial infarction): Code(s): I21.4 - Non-ST elevation (NSTEMI) myocardial infarction Status: Acute Assessment and Plan: 48-year-old male with known CAD, history of non ST elevation [place], status post PCI/ 2.75x 23 mm Xience everolimus eluting stent placement in the distal RCA on 04/22/2016; noncompliance. Patient presented with 3 day history of worsening chest pain. EKG showed ST-T abnormality in the anterolateral leads consistent with ischemia. Troponins has reached up to 27.4. Coronary angiogram showed multivessel CAD- 100% thrombotic occlusion of mid LCX -infarct related vessel; and high-grade stenosis in the mid LAD, diagonal branch; diffuse disease in the RCA with severe ISR distal segment; LVEF 45-50%. Patient underwent PCI/AMMON x1 mid LCX with uatsdin of flow in the OM branch. -chest pain has resolved. Currently clinically stable. OK for discharge today. -Continue dual antiplatelet therapy with aspirin ticagrelor; beta-gaston, high-dose statin. -Echo showed low normal EF 50-55% with mid inferolateral hypokinesis -Patient has multivessel CAD involving LAD, diagonal branch and proximal- distal RCA. Revascularization options were discussed with the patient which include multivessel PCI versus CABG. Patient will be seen in the outpatient cardiology clinic in next couple weeks and will determine further revascularization strategy. He was advised to seek immediate medical attention after hospital discharge if recurrent chest discomfort. -Reinforced the importance of continuing all medications, specifically Brilinta. Unfortunately, our office does not have any samples currently. Instructed patient that if he is unable to afford Brilinta copay he is to call our office for assistance. He was give4n a $5 copay card by care coordination as well. (2) History of noncompliance with medical treatment, presenting hazards to health: Code(s): Z91.199 - Patient's noncompliance with other medical treatment and regimen due to unspecified reason Status: Acute Assessment and Plan: Patient has history of noncompliance with medical treatment and outpatient follow-up. Reinforced importance of adherence to the medical plan. Subjective Date/time seen: 09/05/23 12:43 Interval history: Cardiology follow up for CAD, NSTEMI He is feeling well today. Denies any chest pain or shortness of breath. Stable cardiac rhythm on telemetry with no ectopy. Eager to go home. Review of Systems Review of Systems: All systems reviewed & are unremarkable except as noted in HPI and below Objective Data Vital Signs Vital Signs: Vital Signs - 24 hr 09/04/23 14:00 09/04/23 16:00 09/04/23 16:00 Temperature 36.6 C Pulse Rate 98 87 96 Respiratory Rate 14 Blood Pressure 117/78 Pulse Oximetry 98 Oxygen Delivery 09/04/23 16:00 09/04/23 18:00 09/04/23 20:07 Temperature Pulse Rate 87 86 92 Respiratory Rate 15 Blood Pressure Pulse Oximetry 98 Oxygen Delivery Room Air 09/04/23 20:00 09/04/23 20:00 09/04/23 20:00 Temperature 36.7 C Pulse Rate 97 99 Respiratory Rate 22 H Blood Pressure 124/91 H Pulse Oximetry 96 Oxygen Delivery Room Air 09/04/23 22:00 09/05/23 00:00 09/05/23 00:00 Temperature Pulse Rate 82 79 Respiratory Rate Blood Pressure Pulse Oximetry Oxygen Delivery Room Air 09/05/23 00:00 09/05/23 02:00 09/05/23 04:00 Temperature 36.6 C Pulse Rate 79 78 82 Respiratory Rate 19 Blood Pressure 110/75 Pulse Oximetry 96 Oxygen Delivery 09/05/23 04:00 09/05/23 04:00 09/05/23 05:50 Temperature 36.8 C Pulse Rate 82 78 Respiratory Rate 18 Blood Pressure 136/108 H Pulse Oximetry 96 Oxygen Delivery Room Air 09/05/23 08:05 09/05/23 08:00 09/05/23 08:00 Temperature 36.3 C L Pulse Rate 81 72 72 Respiratory Rate 16 Blood Pressure 133/
--- NOTE | 2023-09-05 13:21 | PM.DS ---
DS: Admitting Diagnosis Discharge Date 09/05/23 Admitting Diagnosis NSTEMI DS: Discharge Diagnosis Discharge Diagnosis (1) History of noncompliance with medical treatment, presenting hazards to health: Code(s): Z91.199 - Patient's noncompliance with other medical treatment and regimen due to unspecified reason Status: Acute (2) Coronary artery disease: Code(s): I25.10 - Atherosclerotic heart disease of [place] coronary artery without angina pectoris Status: Acute (3) Non-STEMI (non-ST elevated myocardial infarction): Code(s): I21.4 - Non-ST elevation (NSTEMI) myocardial infarction Status: Acute DS: Summary Hospital Course Hospital Course: 48-year-old male with known CAD, history of non ST elevation [place], status post PCI/ 2.75x 23 mm Xience everolimus eluting stent placement in the distal RCA on 04/22/2016; noncompliance. Former smoker. He presented with chest pain over the last 3 days prior to admission. The pain actually starts in his left elbow then progresses to the shoulder and then chest. Troponin increased from 0.284-1.12. EKG consistent with ischemia showing ST-T changes in the anterior all lateral leads. On September 03 he underwent cardiac catheterization with Dr. Burch: 1.? Left heart catheterization- Selective left and right coronary angiogram;? left ventriculogram and hemodynamic assessment 2.? Percutaneous coronary intervention- balloon angioplasty and stenting of totally occluded mid? left circumflex artery using a 3.25 x 12 mm Fowler Xience everolimus eluting stent with alevism of flow in the OM branch 3.? Deployment of ? Mynx hemostatic device 4.? Moderate sedation-CPT code 08951 and beyond He did well post catheterization. He is discharged home in stable condition with follow-up to Dr. Burch for ongoing discussions to further management including possibility of CABG versus multivessel PCI. He has been prescribed aspirin ticagrelor atorvastatin and Coreg. His HbA1c is 5.1. Triglycerides 126. Cholesterol 219. LDL 124. HDL 48. He previously stopped his medications as 2 years after his 1st PCI he felt like everything was okay. He has been counseled multiple times by multiple clinicians about the importance of adhering to medical therapy. He is now in full understanding and agrees to take his medications and adhere to follow-up. Rehab per Cardiology. He will also follow with PCP and he knows if he has recurrent chest pain to return to the ER immediately. Time Spent with Patient Time attestation: Total time spent providing and/or coordinating discharge services: Exam Const: General: cooperative and no acute distress Resp: Effort & Inspection: normal respiratory effort Auscultation: clear to auscultation bilaterally Cardio: Rate: regular rate Rhythm: regular rhythm Heart sounds: S1 normal heart sound present and S2 normal heart sound present GI: GI Palp: No abdominal tenderness Auscultation: normal bowel sounds DS: Data Data Completed and Pending Labs on day of discharge: Labs from last 24 hours 09/05/23 09/05/23 04:07 04:06 WBC 5.4 RBC 4.73 Hgb 15.1 Hct 43.7 MCV 92.4 MCH 31.9 MCHC 34.6 RDW 12.5 Plt Count 150 MPV 10.2 Immature Gran % (Auto) 0.2 Neut % (Auto) 65.4 Lymph % (Auto) 22.6 [place] % (Auto) 9.1 H Eos % (Auto) 2.1 Baso % (Auto) 0.6 Lymph # (Auto) 1.21 [place] # (Auto) 0.5 Eos # (Auto) 0.1 Baso # (Auto) 0.0 Abs Immat Gran (auto) 0.01 Absolute Neuts (auto) 3.5 Absolute Nucleated RBC 0.0 Nucleated RBC % 0.0 Sodium 136 L Potassium 3.5 Chloride 106 Carbon Dioxide 23 Anion Gap 7 L BUN 11 Creatinine 0.90 Estim Creat Clear Calc 90 Estimated GFR > 60 Glucose 101 Hemoglobin A1c 5.1 Calcium 8.5 Magnesium 2.2 Total Bilirubin 0.8 AST 58 ALT 33 Alkaline Phosphatase 56 Total Protein 6.0 L Albumin 3.6 Discharge Plan Discharge Attending physician on dischar
--- NOTE | 2023-09-20 14:04 | IVDEFINITY ---
Prior to administration of IV Definity the patient was educated on the risks and benefits of the imaging enhancing agent including potential adverse side effects. The patient verbalized understanding. Allergies were verified. No exclusion criteria were identified and at least one of the following inclusion criteria were met: 1) physician request, 2) patient technically difficult to image (per the [place] [employer]chocardi[employer] guidelines of two or more segments not discernable within the apical view), or 3) questionable left ventricular function. ?
== END 2023-09-05 14:16 | disposition home or self-care (01) | DRG 322 ==
LOC: ANHED 10:53 → ANHICU 14:30
PROVIDERS: Internal Medicine; Internal Medicine Cardiovascular Disease; Admitting Provider General Practice; Emergency Provider Emergency Medicine; PCP Emergency Medicine; Visit Provider General Practice
PROC: 4A023N7 Measurement of Cardiac Sampling and Pressure, Left Heart, Percutaneous Approach (ICD-10-PCS; CPT 93452; principal; 2023-09-03 14:45)
PROC: 027034Z Dilation of Coronary Artery, One Artery with Drug-eluting Intraluminal Device, Percutaneous Approach (ICD-10-PCS; CPT 92928; 2023-09-03 14:45)
PROC: 027034Z Dilation of Coronary Artery, One Artery with Drug-eluting Intraluminal Device, Percutaneous Approach (ICD-10-PCS; 2023-09-03 14:45)
DX: I21.4 Non-ST elevation (NSTEMI) myocardial infarction (principal); T82.855A Stenosis of coronary artery stent, initial encounter; I25.10 Atherosclerotic heart disease of native coronary artery without angina pectoris; Z91.199 Patient's noncompliance with other medical treatment and regimen due to unspecified reason; Z95.5 Presence of coronary angioplasty implant and graft; Z87.891 Personal history of nicotine dependence; I25.2 Old myocardial infarction
CPT/HCPCS: 36415; 71045; 80053; 80061; 83036; 83690; 83735; 83880; 84484; 85025; 85380; 85610; 85730; 93005; 93458; 96374; 96375; 96376; 99285; A9270; C1725; C1760; C1769; C1874; C1887; C1894; C8929; C9113; C9600; G0269; G0378; J0171; J0360; J0583; J1644; J2250; J2270; J2305; J2405; J3010; J7030; J7040; Q9957